=== PATIENT | male | born 1985 | race Caucasian/White ===

== ENCOUNTER 2019-03-13 14:49 | Emergency (ER) | payer OTHER ==
[2019-03-13] MEDS ORDERED: Diphtheria,Pertussis(Acell),Tetanus Vaccine 0.5 ML Syringe IM ONE (15:14)
--- NOTE | 2019-03-13 15:40 | EDM.PDOC ---
ED HPI GENERAL MEDICAL PROBLEM - General Chief Complaint: Laceration Stated Complaint: LT PINKY FINGER LAC Time Seen by Provider: 03/13/19 14:55 Source of Information: Reports: Patient, RN Notes Reviewed History Limitations: Reports: No Limitations - History of Present Illness INITIAL COMMENTS - FREE TEXT/NARRATIVE: Patient is a 33-year-old male who presents to the ED for the evaluation of a left pinky finger laceration. Patient notes he was helping his father move a water heater at around 1:30 PM today, when he ended up pinching his left fifth digit, which resulted in a almost 2 cm semicircular laceration on the pad of his fifth digit of his left hand. There is also a 5 mm linear laceration on the pad of his left fifth digit as well. The larger laceration is more of a skin flap type injury, and the linear laceration is perpendicular to this semicircular skin flap. Patient states there was very minimal bleeding, and he denies any numbness or tingling distal to this injury. This does not involve the nail bed at all. Patient believes his last tetanus booster was around 3 to 5 years ago, but he states this was provided by the [employer], he is very unsure if the tetanus was involved in his immunizations that he received at that time. Patient notes he is [id number]. Left Finger-Little Pain Score (Numeric/FACES): 7 - Related Data Allergies Allergy/AdvReac Type Severity Reaction Status Date / Time No Known Allergies Allergy Verified 03/13/19 14:54 Home Meds: Home Meds . [No Known Home Meds] 03/13/19 [History] Past Medical History - Past Surgical History HEENT Surgical History: Reports: Myringotomy w Tube(s) Social & Family History - Tobacco Use Smoking Status *Q: Current Every Day Smoker Years of Tobacco use: 10 Packs/Tins Daily: 1 Second Hand Smoke Exposure: No - Caffeine Use Caffeine Use: Reports: Coffee, Soda - Recreational Drug Use Recreational Drug Use: No ED ROS GENERAL - Review of Systems Review Of Systems: Comprehensive ROS is negative, except as noted in HPI. Skin: Reports: Bruising (within the skin flap on L 5th digit), Wound (See HPI) Neurological: Denies: Numbness, Tingling ED EXAM, SKIN/RASH Exam: See Below Exam Limited By: No Limitations General Appearance: Alert, WD/WN, No Apparent Distress Respiratory/Chest: No Respiratory Distress, Lungs Clear, Normal Breath Sounds, No Accessory Muscle Use, Chest Non-Tender Cardiovascular: Normal Peripheral Pulses, Regular Rate, Rhythm, No Murmur Peripheral Pulses: 3+: Radial (L), Radial (R) Extremities: Normal Inspection (with exception of laceration; see skin assessment), Normal Range of Motion, Non-Tender, Normal Capillary Refill Neurological: Alert, Oriented, Normal Cognition, No Motor/Sensory Deficits Psychiatric: Normal Affect, Normal Mood Skin: Warm, Dry, No Rash, Ecchymosis (within skin flap injury itself), Wound/ Incision (2 lacerations to left fifth anterior distal digit: Number one 2 cm curvilinear laceration, this is more of a skin flap type laceration, this is well adhered to the finger itself. Number two 5 mm linear laceration perpendicular to the curvilinear laceration, no active bleeding.) Location, Skin: Upper Extremity, Left ED SKIN PROCEDURES - Laceration/Wound Repair Left Anterior Distal Digit - 5th (Baby) Appearance: Superficial, Linear (curvilinear), Clean Distal NVT: Neuro & Vascular Intact, No Tendon Injury Skin Prep: Chlorhexidine (Hibiciens), Saline Exploration/Debridement/Repair: Wound Explored, In a Bloodless Field, Explored to Base, No Foreign Material Found Closed with: Dermabond Lac/Wound length In cm: 2 (dermabond placed also on the 5mm laceration that is perpindicular to the larger lac) Sterile Dressing Applied: Nurse Tetanus Status Addressed: Yes Complications: No Course - Vital Signs Last Recorded V/S: Last Vital Signs Temp 97.3 F 03/13/19 14:54 Pulse 83 03/13/19 14:54 Resp 16 03/13/19 14:54 BP 136/95 H 03/13/19 14:54 Pulse Ox 94 L 03/13/19 14:54 - Orders/Labs/Meds Orders: Active Orders 24 hr Category Date Time Status Vaccines to be Administered [RC] PER UNIT ROUTINE Care 03/13/19 15:14 Ordered Meds: Medications Discontinued Medications Generic Name Dose Route Start Last Admin Trade Name Freq PRN Reason Stop Dose Admin Diphtheria/Tetanus/Acell Pertussis 0.5 ml 03/13/19 15:14 03/13/19 15:22 Adacel IM 03/13/19 15:15 0.5 ml .ONCE ONE Administration Departure - Departure Time of Disposition: 15:44 Disposition: Home, Self-Care 01 Condition: Good Clinical Impression: Laceration of left little finger Qualifiers: Encounter type: initial encounter Damage to nail status: without damage Foreign body presence: without foreign body Qualified Code(s): S61.217A - Laceration without foreign body of left little finger without damage to nail, initial encounter - Discharge Information *PRESCRIPTION DRUG MONITORING PROGRAM REVIEWED*: No *COPY OF PRESCRIPTION DRUG MONITORING REPORT IN PATIENT GAVIN: No Instructions: Stitches, Sujit, or Adhesive Wound Closure, [id number] Referrals: Trisha Marley MD [Primary Care Provider] - Additional Instructions: You have been evaluated in the ED for your laceration. Your wound was repaired with Dermabond, this is a medical grade wound adhesive. Please keep this area clean and dry, you may cleanse with regular soap and water. No vigorous scrubbing. Watch out for signs of infection like increased redness, swelling, pain at the laceration site, or if you should develop any fevers or chills. Please return to ED if your symptoms change or worsen. - My Orders Last 24 Hours: My Active Orders 03/13/19 15:14 Vaccines to be Administered [RC] PER UNIT ROUTINE - Assessment/Plan Last 24 Hours: My Active Orders 03/13/19 15:14 Vaccines to be Administered [RC] PER UNIT ROUTINE
== END 2019-03-13 16:06 | disposition home or self-care (01) ==
LOC: JD.ED 14:49
DX: S61.217A Laceration without foreign body of left little finger without damage to nail, initial encounter (principal); F17.210 Nicotine dependence, cigarettes, uncomplicated; Z23 Encounter for immunization; W23.1XXA Caught, crushed, jammed, or pinched between stationary objects, initial encounter; Y93.89 Activity, other specified
CPT/HCPCS: 12001; 90471; 90715; 99282; 99282-25

== ENCOUNTER 2019-10-26 17:32 | Emergency (ER) | payer OTHER ==
--- NOTE | 2019-10-26 18:38 | EDM.PDOC ---
ED HPI GENERAL MEDICAL PROBLEM - General Chief Complaint: ENT Problem Stated Complaint: EAR PAIN Time Seen by Provider: 10/26/19 17:53 Source of Information: Reports: Patient History Limitations: Reports: No Limitations - History of Present Illness INITIAL COMMENTS - FREE TEXT/NARRATIVE: Patient is a 34-year-old male who presents to the emergency department with complaints of pressure in his bilateral ears. First noticed this a few days ago and has been getting progressively worse. He states that he had surgery on October 17 at the ENT center in [facility] for a collapsed eustachian tube on the right side. Myringotomy tube was placed and has been functioning well since that time. Prior to the tube being placed, he had reduced hearing in his right ear which was that brought him to ENT. He denies any significant pressure in this ear previously. Since the tube was inserted, his hearing has improved. The feeling of pressure in his bilateral ears is a new occurrence for him. He did contact the ENT clinic in [place] today, and they are supposed to be in touch with him tomorrow when there is a doctor in the office. He states that the pressure in his ears is not overly painful but that it is more annoying. He has not taken any [id number] medications for it thus far. He denies any fever, chills, or respiratory symptoms. He has no nasal congestion, sinus pressure, dizziness or other symptoms of vertigo. Bilateral Ear Pain Score (Numeric/FACES): 4 - Related Data Allergies Allergy/AdvReac Type Severity Reaction Status Date / Time No Known Allergies Allergy Verified 10/26/19 17:44 Home Meds: Home Meds . [No Known Home Meds] 03/13/19 [History] Past Medical History - Past Surgical History HEENT Surgical History: Reports: Myringotomy w Tube(s) Social & Family History - Tobacco Use Smoking Status *Q: Former Smoker Used Tobacco, but Quit: Yes Month/Year Tobacco Last Used: 2015 - Caffeine Use Caffeine Use: Reports: Coffee, Soda, Tea - Recreational Drug Use Recreational Drug Use: No ED ROS ENT - Review of Systems Review Of Systems: See Below Constitutional: Reports: No Symptoms. Denies: Fever, Chills HEENT: Reports: Other (Bilateral ear pressure). Denies: Ear Discharge Respiratory: Reports: No Symptoms. Denies: Shortness of Breath, Cough Cardiovascular: Reports: No Symptoms Endocrine: Reports: No Symptoms GI/Abdominal: Reports: No Symptoms : Reports: No Symptoms Musculoskeletal: Reports: No Symptoms Skin: Reports: No Symptoms Neurological: Reports: No Symptoms. Denies: Dizziness, Headache Psychiatric: Reports: No Symptoms Hematologic/Lymphatic: Reports: No Symptoms Immunologic: Reports: No Symptoms ED EXAM, ENT - Physical Exam Exam: See Below Exam Limited By: No Limitations General Appearance: Alert, WD/WN, No Apparent Distress Ears: Normal External Exam, Normal Canal, Hearing Grossly Normal, TM Fluid (Behind left TM.), Other (Myringotomy tube to right TM. Appears positioned appropriately.) Mouth/Throat: Normal Inspection, Normal Gums, Normal Lips, Normal Oropharynx, Normal Teeth Head: Atraumatic, Normocephalic Neck: Normal Inspection, Supple, Non-Tender, Full Range of Motion Respiratory/Chest: No Respiratory Distress, Lungs Clear, Normal Breath Sounds, No Accessory Muscle Use, Chest Non-Tender Cardiovascular: Normal Peripheral Pulses, Regular Rate, Rhythm, No Edema, No Gallop, No JVD, No Murmur, No Rub Neurological: Alert, Oriented, CN II-XII Intact, Normal Cognition, Normal Gait, Normal Reflexes, No Motor/Sensory Deficits Psychiatric: Normal Affect, Normal Mood Skin: Warm, Dry, Intact, Normal Color, No Rash Course - Vital Signs Last Recorded V/S: Last Vital Signs Temp 96.9 F 10/26/19 17:40 Pulse 82 10/26/19 17:40 Resp 18 10/26/19 17:40 BP 149/100 H 10/26/19 17:40 Pulse Ox - Re-Assessments/Exams Free Text/Narrative Re-Assessment/Exam: On exam, myringotomy tube to the right TM appears to be in normal position. There is no redness or erythema to either TMs, however there is some fluid behind the right TM. Jean Carlos has a call into his ENTs office and they are supposed to call him back tomorrow to follow-up. He was mostly concerned that the tube may not have been in the right position. Recommend that he starts on Flonase nasal spray and Xyzal antihistamine. He plans to follow-up with his ENT by phone tomorrow. Discharge instructions as documented. Departure - Departure Time of Disposition: 19:02 Disposition: Home, Self-Care 01 Condition: Good Clinical Impression: Ear pressure Qualifiers: Laterality: bilateral Qualified Code(s): H93.8X3 - Other specified disorders of ear, bilateral - Discharge Information *PRESCRIPTION DRUG MONITORING PROGRAM REVIEWED*: No *COPY OF PRESCRIPTION DRUG MONITORING REPORT IN PATIENT GAVIN: No Instructions: Ear Barotrauma, Adult, [id number] Referrals: PCP,Not In Area [Primary Care Provider] - Forms: ED Department Discharge Additional Instructions: You were seen in the emergency department for bilateral ear pressure. On exam, there is fluid behind your left eardrum. The tube in your right ear is in good placement. There are no signs of infection to either ears. We recommend that you started over the counter Flonase spray twice daily, as well as Zyzal. Contact your ENT tomorrow for further recommendations. Return to the ER as needed. Sepsis Event Note (ED) - Evaluation Sepsis Screening Result: No Definite Risk - Focused Exam Vital Signs: Vital Signs Temp Pulse Resp BP 10/26/19 17:40 96.9 F 82 18 149/100 H
== END 2019-10-26 19:18 | disposition home or self-care (01) ==
LOC: JD.ED 17:32
DX: H93.8X3 Other specified disorders of ear, bilateral (principal); Z87.891 Personal history of nicotine dependence
CPT/HCPCS: 99282